=== PATIENT | female | born 1950 | race Two or more races ===

== ENCOUNTER 2018-04-11 09:00 | Inpatient (IN) | payer OTHER ==
[~2018-04-11] VITALS: Ht 167.6 cm; Wt 107.5 kg
[2018-04-12] MEDS ORDERED: TIROSINT75 MCG PO (12:26)
[2018-04-12] MEDS ORDERED: METFORMIN HCL500 MG PO (12:27)
[2018-04-12] MEDS ORDERED: DICLOFENAC SODI75 MG PO (12:27)
[2018-04-12] MEDS ORDERED: PRAVASTATIN SOD40 MG PO (12:28)
[2018-04-12] MEDS ORDERED: LISINOPRIL-HCT1 EACH (12:28)
[2018-04-12] MEDS ORDERED: BISOPROLOL-HCT1 EAC2 PO (12:29)
[2018-04-30] MEDS ORDERED: ELIQUIS2.5 MG PO ×3 (08:36→09:01)
[2018-04-30] MEDS ORDERED: CEFADROXIL500 MG PO ×3 (08:36→09:02)
[2018-04-30] MEDS ORDERED: PERCOCET 2.5-31 EACH PO (08:37)
[2018-04-30] MEDS ORDERED: PERCOCET 5-3251 EACH PO (08:59)
== END 2018-04-30 15:47 | DRG 470 ==
LOC: SURG 04-24 05:15 → O/R 04-24 05:15 → SURH 04-24 09:00 → SURG 04-24 13:48 → SURH 04-24 16:45 → SURG 04-30 15:47 → SURH 05-02 09:00
PROVIDERS: Orthopaedic Surgery
PROC: 0MNP0ZZ Release Left Knee Bursa and Ligament, Open Approach (ICD-10-PCS; 2018-04-24)
PROC: 0SRD0J9 Replacement of Left Knee Joint with Synthetic Substitute, Cemented, Open Approach (ICD-10-PCS; principal; 2018-04-24 16:45)
PROC: 30233N1 Transfusion of Nonautologous Red Blood Cells into Peripheral Vein, Percutaneous Approach (ICD-10-PCS; 2018-04-26)
DX: M17.12 Unilateral primary osteoarthritis, left knee (principal); D62 Acute posthemorrhagic anemia; M81.0 Age-related osteoporosis without current pathological fracture; E66.8 Other obesity; I10 Essential (primary) hypertension; E11.9 Type 2 diabetes mellitus without complications; E03.8 Other specified hypothyroidism

== ENCOUNTER 2018-12-24 09:00 | Inpatient (IN) | payer OTHER ==
[~2018-12-24] VITALS: Ht 167.6 cm; Wt 107.5 kg
[~2018-12-24 09:00] MED LIST: BISOPROLOL-HCT1 EAC2 PO; CEFADROXIL500 MG PO; DICLOFENAC SODI75 MG PO; ELIQUIS2.5 MG PO; LISINOPRIL-HCT1 EACH; METFORMIN HCL500 MG PO; PERCOCET 2.5-31 EACH PO; PERCOCET 5-3251 EACH PO; PRAVASTATIN SOD40 MG PO; TIROSINT75 MCG PO
[2019-01-03] MEDS ORDERED: ELIQUIS2.5 MG PO (16:42)
[2019-01-03] MEDS ORDERED: CEFADROXIL500 MG PO (16:42)
[2019-01-03] MEDS ORDERED: PERCOCET 5-3251 EACH PO (16:42)
== END 2019-01-04 09:22 | DRG 470 ==
LOC: EDSTATUS 09:00 → ADM 09:00 → O/R 01-01 05:40 → SURH 01-01 09:00
PROVIDERS: ADMIT Orthopaedic Surgery
PROC: 0MNN0ZZ Release Right Knee Bursa and Ligament, Open Approach (ICD-10-PCS; 2019-01-01)
PROC: 0SRC0J9 Replacement of Right Knee Joint with Synthetic Substitute, Cemented, Open Approach (ICD-10-PCS; principal; 2019-01-01 12:00)
DX: M17.11 Unilateral primary osteoarthritis, right knee (principal); M80.00XA Age-related osteoporosis with current pathological fracture, unspecified site, initial encounter for fracture; D62 Acute posthemorrhagic anemia; M22.11 Recurrent subluxation of patella, right knee; E66.09 Other obesity due to excess calories; E03.8 Other specified hypothyroidism; Z96.653 Presence of artificial knee joint, bilateral